=== PATIENT | female | born 1990 | race Caucasian/White ===

== ENCOUNTER 2021-06-10 07:15 | Inpatient (IN) | payer MEDICAID, SELFPAY ==
[~2021-06-10] VITALS: Ht 154.9 cm; Wt 133.4 kg
[2021-06-10] MEDS ORDERED: CITRIC ACID/SODIUM CITRATE 30 ML UDC PO SCH (08:00)
--- NOTE | 2021-06-10 08:58 | NUR ---
PATIENT HAS BEEN SCREENED AND CATEGORIZED LOW NUTRITION RISK. PATIENT WILL BE SEEN WITHIN 7 DAYS OF ADMISSION. 06/16/[address]
[2021-06-10] MEDS: LACTATED RINGERS 1,000 ML IV SCH ×2 (09:00→10:25)
[2021-06-10 09:18] LABS: BASOPHILS % (AUTO) 0.2 % (0.0-2.0); EOSINOPHILS # (AUTO) 0.2 K/uL (0-0.4); EOSINOPHILS % (AUTO) 1.1 % (0.0-4.0); HEMATOCRIT 35.7 % (36-48); HEMOGLOBIN 12.1 g/dL (12.0-16.0); LYMPHOCYTES # (AUTO) 2.2 K/uL (2.5-16.5); LYMPHOCYTES % (AUTO) 14.5 % (20.5-51.1); MEAN CORPUSCULAR HEMOGLOBIN 29 pg (27-31); MEAN CORPUSCULAR HGB CONC 34 g/dL (33-37); MEAN CORPUSCULAR VOLUME 84.6 fL (80-94); MONOCYTES # (AUTO) 0.9 K/uL (0.8-1.0); MONOCYTES % (AUTO) 5.9 % (1.7-9.3); NEUTROPHILS # (AUTO) 11.7 K/uL (1.8-7.7); NEUTROPHILS % (AUTO) 78.3 % (42.2-75.2); PLATELET COUNT (AUTO) 226 K/uL (140-450); RED BLOOD CELL COUNT(AUTO) 4.22 MIL/uL (4.20-5.40)
[2021-06-10 09:22] VITALS: BP 147/92
[2021-06-10 09:28] LABS: ALBUMIN 2.5 g/dL (3.4-5.0); ANION GAP 12.7 (8-16); CARBON DIOXIDE 22.1 mmol/L (21-32); CREATININE 0.6 mg/dL (0.6-1.3); POTASSIUM 3.8 mmol/L (3.5-5.1); TOTAL BILIRUBIN 0.2 mg/dL (0.0-1.0)
[2021-06-10] MEDS ORDERED: [UNRECOGNIZED DRUG - CODE] PO (10:03)
[2021-06-10] MEDS ORDERED: TRA200 PO (10:03)
[2021-06-10] MEDS ORDERED: ASPI-1379 PO (10:03)
[2021-06-10 10:54] LABS: BILIRUBIN,URINE NEGATIVE (NEGATIVE); BLOOD, URINE 2+ (NEGATIVE); COLOR,URINE YELLOW (YELLOW); LEUKOCYTE ESTERASE ,URINE NEGATIVE (NEGATIVE); NITRITE, URINE NEGATIVE (NEGATIVE); UGLUCOSE NEGATIVE (NEGATIVE)
[2021-06-10] MEDS ORDERED: MIDAZOLAM 2 MG/2 ML VIAL ONE (11:21)
[2021-06-10] MEDS ORDERED: MORPHINE PRES FREE 10 MG/10 ML AMP IV ONE (11:22)
[2021-06-10 11:23] LABS: APPEARANCE,URINE SLIGHTLY HAZY (CLEAR)
[2021-06-10 11:24] LABS: RBC,URINE NONE SEEN /HPF (0-5)
[2021-06-10] MEDS ORDERED: SIMETHICONE 80 MG TAB.CHEW PO PRN (11:40)
[2021-06-10] MEDS ORDERED: oxyCODONE/APAP 5/325 MG 1 TAB TAB PO PRN (11:40)
[2021-06-10] MEDS ORDERED: TEMAZEPAM 15 MG CAP PO PRN (11:40)
[2021-06-10] MEDS ORDERED: KETOROLAC 30 MG/ML VIAL IVP PRN (11:40)
[2021-06-10] MEDS ORDERED: IBUPROFEN 800 MG TAB PO PRN (11:40)
[2021-06-10] MEDS ORDERED: OXYTOCIN 20 UNITS/LR PREMIX 1,000 ML IV ONE ×2 (12:37→21:08)
[2021-06-10] MEDS: OXYTOCIN 20 UNITS in LACTATED RINGERS 1,000 ML IV SCH ×2 (12:37→21:45)
[2021-06-10] MEDS: LABETALOL 200 MG TAB PO SCH (17:45)
[2021-06-10] MEDS ORDERED: diphenhydrAMINE 50 MG/ML VIAL IVP PRN (19:35)
[2021-06-10] MEDS ORDERED: ONDANSETRON 4 MG/2 ML VIAL IVP PRN (19:35)
[2021-06-10] MEDS: KETOROLAC 30 MG/ML VIAL IM SCH (20:28)
[2021-06-10] MEDS: DOCUSATE SOD/SENNA 50/8.6 MG 1 TAB PO SCH (20:29)
[2021-06-11] MEDS: KETOROLAC 30 MG/ML VIAL IM SCH ×2 (02:17→09:06)
[2021-06-11] MEDS ORDERED: OXYTOCIN 20 UNITS/LR PREMIX 1,000 ML IV ONE (04:43)
[2021-06-11] MEDS: OXYTOCIN 20 UNITS in LACTATED RINGERS 1,000 ML IV SCH (05:47)
[2021-06-11 05:54] LABS: BASOPHILS % (AUTO) 0.3 % (0.0-2.0); EOSINOPHILS # (AUTO) 0.2 K/uL (0-0.4); EOSINOPHILS % (AUTO) 1.5 % (0.0-4.0); HEMATOCRIT 30.8 % (36-48); HEMOGLOBIN 10.6 g/dL (12.0-16.0); LYMPHOCYTES # (AUTO) 1.8 K/uL (2.5-16.5); LYMPHOCYTES % (AUTO) 14.5 % (20.5-51.1); MEAN CORPUSCULAR HEMOGLOBIN 29 pg (27-31); MEAN CORPUSCULAR HGB CONC 35 g/dL (33-37); MEAN CORPUSCULAR VOLUME 85.2 fL (80-94); MONOCYTES % (AUTO) 8.1 % (1.7-9.3); NEUTROPHILS # (AUTO) 9.5 K/uL (1.8-7.7); NEUTROPHILS % (AUTO) 75.6 % (42.2-75.2); PLATELET COUNT (AUTO) 194 K/uL (140-450); RED BLOOD CELL COUNT(AUTO) 3.61 MIL/uL (4.20-5.40); RED CELL DISTRIBUTION WIDTH 14.1 % (11.6-13.7); WHITE BLOOD COUNT (AUTO) 12.6 K/uL (4.8-10.8)
[2021-06-11] MEDS: LABETALOL 200 MG TAB PO SCH ×3 (09:06→20:56)
[2021-06-11] MEDS: oxyCODONE/APAP 5/325 MG 1 TAB TAB PO PRN (15:02)
[2021-06-11] MEDS ORDERED: CAMERA MC ONE (19:17)
[2021-06-11] MEDS ORDERED: MEASLES, MUMPS, AND RUBELLA 1 VIAL SQVAC ONE (19:40)
[2021-06-11] MEDS: DOCUSATE SOD/SENNA 50/8.6 MG 1 TAB PO SCH (20:56)
[2021-06-12] MEDS: oxyCODONE/APAP 5/325 MG 1 TAB TAB PO PRN ×2 (01:28→08:42)
[2021-06-12] MEDS: LABETALOL 200 MG TAB PO SCH ×2 (08:44→14:50)
== END 2021-06-12 18:00 | disposition home or self-care (01) | DRG 540 ==
LOC: MLD 07:15 → OBSVTOIN 07:57 → MFCC 14:30
PROVIDERS: ADMIT Obstetrics & Gynecology; ATTEND Obstetrics & Gynecology
PROC: 10D00Z1 Extraction of Products of Conception, Low, Open Approach (ICD-10-PCS; principal; 2021-06-10 11:30)
PROC: 3E0134Z Introduction of Serum, Toxoid and Vaccine into Subcutaneous Tissue, Percutaneous Approach (ICD-10-PCS; 2021-06-11)
DX: O11.4 Pre-existing hypertension with pre-eclampsia, complicating childbirth (principal); E66.01 Morbid (severe) obesity due to excess calories; O24.429 Gestational diabetes mellitus in childbirth, unspecified control; R71.0 Precipitous drop in hematocrit; O99.214 Obesity complicating childbirth; O34.211 Maternal care for low transverse scar from previous cesarean delivery; O10.92 Unspecified pre-existing hypertension complicating childbirth; Z37.0 Single live birth; Z20.822 Contact with and (suspected) exposure to COVID-19; Z3A.37 37 weeks gestation of pregnancy; Z23 Encounter for immunization
CPT/HCPCS: 36415; 80053; 81001; 85025; 86592; 86886; 86900; 86901; 87086; 90707; G0378; J0690; J1200; J1885; J2250; J2270; J2590; J7060; J7120